=== PATIENT | male | born 1970 | race Hispanic/Latino ===

== ENCOUNTER 2018-11-22 15:31 | Emergency (ER) | payer OTHER ==
[~2018-11-22] VITALS: Ht 180.3 cm; Wt 113.4 kg
[2018-11-22] MEDS ORDERED: PREDNISONE 20 MG TAB PO ONE (15:45)
[2018-11-22] MEDS ORDERED: TRAMADOL HCL 50 MG TAB PO ONE (15:45)
--- NOTE | 2018-11-22 16:18 | Diagnostic Imaging Report ---
RIGHT HAND - 3 Image(s) HISTORY: Swollen, pain, trauma, one week ago COMPARISON: None available. FINDINGS: Bones: Minimally displaced spiral fracture involving the proximal metadiaphysis of the fourth metacarpal bone. No aggressive osseous lesion. Joints: Osseous alignment is within normal limits and the joint spaces are well-maintained. Soft tissues: Regional soft tissue swelling. IMPRESSION: Subacute extra-articular fracture of the proximal fourth metacarpal bone. Signed by: Dr. Jalen Chester D.O., M.M.M. on 11/22/2018 4:14 PM
== END 2018-11-22 17:11 | disposition home or self-care (01) ==
LOC: ER 15:31
DX: S62.314A Displaced fracture of base of fourth metacarpal bone, right hand, initial encounter for closed fracture (principal); Y99.0 Civilian activity done for income or pay
CPT/HCPCS: 29125; 73130; 99283; J7512